=== PATIENT | female | born 1945 | race Caucasian/White ===

== ENCOUNTER 2024-03-15 18:13 | Emergency (ER) | payer MEDICARE, BC ==
[2024-03-15 19:22] LABS: BASOPHILS ABSOLUTE AUTO 0.1 K/mm3 (0.0-0.2); BASOPHILS PERCENT AUTO 0.5 % (0.0-1.0); EOSINOPHILS PERCENT AUTO 0.3 % (0.0-6.0); HEMOGLOBIN 10.2 gm/dl (12.0-16.0); IMMATURE GRAN ABSOLUTE AUTO 0.03 K/mm3 (0.00-0.05); IMMATURE GRAN PERCENT AUTO 0.3 % (0.0-0.4); LYMPHOCYTES ABSOLUTE AUTO 1.8 K/mm3 (1.0-4.8); MEAN CORPUSCULAR HEMOGLOBIN 28.6 pg (28.0-32.0); MEAN CORPUSCULAR HGB CONC 32.9 g/dl (32.0-36.0); MEAN CORPUSCULAR VOLUME 86.8 fl (83.0-99.0); MONOCYTES ABSOLUTE AUTO 0.8 K/mm3 (0.0-0.8); MONOCYTES PERCENT AUTO 7.2 % (0.0-8.0); NEUTROPHILS ABSOLUTE AUTO 8.3 K/mm3 (1.8-7.7); NEUTROPHILS PERCENT AUTO 75.7 % (41.0-71.0); PLATELET COUNT,PLT 389 K/mm3 (150-400); RED BLOOD CELL COUNT 3.57 M/mm3 (4.10-5.30); WHITE BLOOD CELL COUNT,WBC 10.95 K/mm3 (3.9-11.3)
[2024-03-15] MEDS: Sodium Chloride 0.9% 1,000 ML IV STA ×2 (19:36→21:00)
[2024-03-15 19:43] LABS: ALBUMIN 3.4 g/dl (3.4-5.0); ANION GAP 14.8 (5-15); BILIRUBIN TOTAL 0.3 mg/dL (0.2-1.0); C-REACTIVE PROTEIN 0.34 mg/dL (<0.30); CALCIUM 8.4 mg/dL (8.5-10.1); EST CRCL DRUG DOSING (CG) 36.11 mL/min; POTASSIUM,K 3.8 mEq/L (3.5-5.1); PROTEIN TOTAL,TP 6.8 g/dl (6.4-8.2)
[2024-03-15 19:45] LABS: MAGNESIUM 2.1 mg/dL (1.8-2.4)
[2024-03-15] MEDS: Sodium Chloride 0.9% 10 ML Syringe FLUSH PRN (19:50)
[2024-03-15] MEDS: Pantoprazole 40 MG Vial IVPUSH ONE (20:04)
[2024-03-15] MEDS: Pantoprazole 80 MG in Sodium Chloride 0.9% 100 ML IV SCH (21:07)
[2024-03-15 21:56] VITALS: BP 130/64; PULSE 92
== END 2024-03-15 21:25 ==
LOC: JD.ED 18:13
DX: K92.2 Gastrointestinal hemorrhage, unspecified (principal); R55 Syncope and collapse; I10 Essential (primary) hypertension; Z88.8 Allergy status to other drugs, medicaments and biological substances; Z88.6 Allergy status to analgesic agent; Z88.2 Allergy status to sulfonamides; Z79.899 Other long term (current) drug therapy
CPT/HCPCS: 36415; 70450; 80053; 83735; 84484; 85025; 86140; 86850; 86900; 86901; 93005; 96361; 96365; 96376; 99285; C9113; J3490; J7030

== ENCOUNTER 2024-06-10 13:50 | Emergency (ER) | payer MEDICARE, BC ==
[2024-06-10 14:54] LABS: BASOPHILS ABSOLUTE AUTO 0.1 K/mm3 (0.0-0.2); BASOPHILS PERCENT AUTO 0.6 % (0.0-1.0); EOSINOPHILS ABSOLUTE AUTO 0.1 K/mm3 (0.0-0.4); EOSINOPHILS PERCENT AUTO 0.9 % (0.0-6.0); HEMATOCRIT 35.5 % (37.0-47.0); HEMOGLOBIN 11.5 gm/dl (12.0-16.0); IMMATURE GRAN ABSOLUTE AUTO 0.02 K/mm3 (0.00-0.05); IMMATURE GRAN PERCENT AUTO 0.2 % (0.0-0.4); LYMPHOCYTES ABSOLUTE AUTO 1.4 K/mm3 (1.0-4.8); LYMPHOCYTES PERCENT AUTO 15.7 % (24.0-44.0); MEAN CORPUSCULAR HEMOGLOBIN 26.4 pg (28.0-32.0); MEAN CORPUSCULAR HGB CONC 32.4 g/dl (32.0-36.0); MEAN PLATELET VOLUME 9.8 fl (9.4-12.3); MONOCYTES PERCENT AUTO 11.8 % (0.0-8.0); NEUTROPHILS ABSOLUTE AUTO 6.2 K/mm3 (1.8-7.7); NEUTROPHILS PERCENT AUTO 70.8 % (41.0-71.0); RED BLOOD CELL COUNT 4.36 M/mm3 (4.10-5.30); WHITE BLOOD CELL COUNT,WBC 8.71 K/mm3 (3.9-11.3)
[2024-06-10 14:59] LABS: MEAN CORPUSCULAR VOLUME 81.4 fl (83.0-99.0); PLATELET COUNT,PLT 278 K/mm3 (150-400)
[2024-06-10 15:25] LABS: A/G RATIO 1.1 (1-2); ALBUMIN 3.6 g/dl (3.4-5.0); ANION GAP 18.1 (5-15); BILIRUBIN TOTAL 0.5 mg/dL (0.2-1.0); BUN/CREATININE RATIO 15.8 (14-18); C-REACTIVE PROTEIN 9.77 mg/dL (<0.30); CALCIUM 9.1 mg/dL (8.5-10.1); CREATININE 1.2 mg/dL (0.55-1.02); EST CRCL DRUG DOSING (CG) 30.1 mL/min; POTASSIUM,K 4.1 mEq/L (3.5-5.1); PROTEIN TOTAL,TP 6.9 g/dl (6.4-8.2)
[2024-06-10] MEDS: Iopamidol 755 Mg/ML 100 ML Bottle IVPUSH ONE (16:22)
[2024-06-10] MEDS: Sodium Chloride 0.9% 100 ML IV SCH (16:22)
[2024-06-10] MEDS: Sodium Chloride 0.9% 1,000 ML IV STA (16:42)
[2024-06-10] MEDS: Sodium Chloride 0.9% 10 ML Syringe FLUSH PRN (16:42)
[2024-06-10 16:43] LABS: CORONAVIRUS COVID-19 NAA NEGATIVE (NEGATIVE); INFLUENZA A NAA NEGATIVE (NEGATIVE); RESPIRATORY SYNCYTIAL VIR NAA NEGATIVE (NEGATIVE)
[2024-06-10 16:47] LABS: APPEARANCE,URINE CLEAR (Clear); BILIRUBIN,URINE NEGATIVE (Negative); COLOR,URINE YELLOW (Yellow); GLUCOSE,URINE NEGATIVE (Negative); KETONES,URINE NEGATIVE (Negative); LEUKOCYTE ESTERASE,URINE NEGATIVE (Negative); NITRITE,URINE NEGATIVE (Negative); OCCULT BLOOD,URINE NEGATIVE (Negative); PH,URINE 6.5 (5.0-8.0); PROTEIN,URINE NEGATIVE (Negative); UROBILINOGEN,URINE 0.2 (0.2-1.0)
[2024-06-10] MEDS: predniSONE 20 MG Tab PO ONE (17:34)
[2024-06-10 17:45] VITALS: BP 153/63; PULSE 78
[2024-06-10 17:50] LABS: TSH 1.904 uIU/mL (0.358-3.74)
== END 2024-06-10 17:43 | disposition home or self-care (01) ==
LOC: JD.ED 13:50
DX: M25.512 Pain in left shoulder (principal); R53.1 Weakness; I10 Essential (primary) hypertension; Z79.899 Other long term (current) drug therapy; Z88.2 Allergy status to sulfonamides; Z88.8 Allergy status to other drugs, medicaments and biological substances
CPT/HCPCS: 0241U; 36415; 70450; 70496; 70498; 73030; 80053; 81003; 84443; 84484; 85025; 86140; 93005; 96360; 99285; C1758; J3490; J7030; J7512; Q9967; 93010; 99284

== ENCOUNTER 2024-06-18 15:05 | Inpatient (IN) | payer MEDICARE, BC ==
[2024-06-18 15:59] LABS: BASOPHILS ABSOLUTE AUTO 0.1 K/mm3 (0.0-0.2); BASOPHILS PERCENT AUTO 0.6 % (0.0-1.0); EOSINOPHILS PERCENT AUTO 0.3 % (0.0-6.0); HEMATOCRIT 41.1 % (37.0-47.0); HEMOGLOBIN 13.2 gm/dl (12.0-16.0); IMMATURE GRAN ABSOLUTE AUTO 0.04 K/mm3 (0.00-0.05); IMMATURE GRAN PERCENT AUTO 0.4 % (0.0-0.4); LYMPHOCYTES ABSOLUTE AUTO 2.1 K/mm3 (1.0-4.8); LYMPHOCYTES PERCENT AUTO 21.7 % (24.0-44.0); MEAN CORPUSCULAR HEMOGLOBIN 26.3 pg (28.0-32.0); MEAN CORPUSCULAR HGB CONC 32.1 g/dl (32.0-36.0); MEAN PLATELET VOLUME 9.6 fl (9.4-12.3); MONOCYTES ABSOLUTE AUTO 0.9 K/mm3 (0.0-0.8); NEUTROPHILS ABSOLUTE AUTO 6.3 K/mm3 (1.8-7.7); PLATELET COUNT,PLT 372 K/mm3 (150-400); RED BLOOD CELL COUNT 5.01 M/mm3 (4.10-5.30); WHITE BLOOD CELL COUNT,WBC 9.44 K/mm3 (3.9-11.3)
[2024-06-18 16:30] LABS: LACTIC ACID 1.1 mmol/L (0.4-2.0)
[2024-06-18] MEDS: Dextrose 5%-0.9% NaCl 1,000 ML IV SCH (16:31)
[2024-06-18] MEDS: HYDROmorphone 0.5 MG/0.5 ML Syringe IVPUSH ONE ×2 (16:31→17:55)
[2024-06-18 16:41] LABS: ALANINE AMINOTRANSFERASE,ALT 22 U/L (14-59); ALBUMIN 3.6 g/dl (3.4-5.0); ALKALINE PHOSPHATASE 120 U/L (46-116); ANION GAP 13.8 (5-15); ASPARTATE AMNIOTRANSFERASE,AST 13 U/L (15-37); BILIRUBIN TOTAL 0.3 mg/dL (0.2-1.0); BLOOD UREA NITROGEN,BUN 21 mg/dL (7-18); BUN/CREATININE RATIO 17.5 (14-18); C-REACTIVE PROTEIN 0.81 mg/dL (<0.30); CALCIUM 9.1 mg/dL (8.5-10.1); CARBON DIOXIDE,CO2 26 mEq/L (21-32); CHLORIDE,CL 102 mEq/L (98-107); CREATININE 1.2 mg/dL (0.55-1.02); ESTIMATED GFR 47 mL/min (>60); GLUCOSE RANDOM 112 mg/dL (70-99); LIPASE 45 U/L (16-77); MAGNESIUM 2.1 mg/dL (1.8-2.4); POTASSIUM,K 3.8 mEq/L (3.5-5.1); PROTEIN TOTAL,TP 7.2 g/dl (6.4-8.2); SODIUM,NA 138 mEq/L (136-145); TSH 3.548 uIU/mL (0.358-3.74)
[2024-06-18 16:42] LABS: TROPONIN I HIGH SENSITIVITY < 4 pg/mL (<=51)
[2024-06-18 17:52] LABS: APPEARANCE,URINE CLEAR (Clear); BILIRUBIN,URINE NEGATIVE (Negative); COLOR,URINE LIGHT YELLOW (Yellow); GLUCOSE,URINE NEGATIVE (Negative); KETONES,URINE NEGATIVE (Negative); LEUKOCYTE ESTERASE,URINE NEGATIVE (Negative); NITRITE,URINE NEGATIVE (Negative); OCCULT BLOOD,URINE NEGATIVE (Negative); PROTEIN,URINE NEGATIVE (Negative); UROBILINOGEN,URINE 0.2 (0.2-1.0)
[2024-06-18] MEDS: Metoclopramide 10 MG/2 ML SDV IVPUSH ONE (17:54)
[2024-06-18] MEDS ORDERED: Sennosides/Docusate Sodium 50-8.6 MG Tab PO PRN (19:50)
[2024-06-18] MEDS ORDERED: Acetaminophen/HYDROcodone 325-5 MG Tab PO PRN (19:50)
[2024-06-18] MEDS ORDERED: Morphine 2 MG/ML SYRINGE IVPUSH PRN (19:50)
[2024-06-18] MEDS ORDERED: Acetaminophen 325 MG Tab PO PRN (19:50)
[2024-06-18] MEDS ORDERED: Ondansetron 4 MG/2 ML SDV IV PRN (19:50)
[2024-06-18] MEDS ORDERED: hydrALAZINE 20 MG/ML SDV IVPUSH PRN (19:54)
[2024-06-18] MEDS ORDERED: Labetalol 100 MG/20 ML MDV IVPUSH PRN (19:56)
[2024-06-18] MEDS: Orphenadrine 100 MG Tab.ER PO SCH (21:38)
[2024-06-18 22:28] LABS: CORONAVIRUS COVID-19 NAA NEGATIVE (NEGATIVE); INFLUENZA A NAA NEGATIVE (NEGATIVE); RESPIRATORY SYNCYTIAL VIR NAA NEGATIVE (NEGATIVE)
[2024-06-19 05:34] LABS: HEMATOCRIT 38.8 % (37.0-47.0); HEMOGLOBIN 12.5 gm/dl (12.0-16.0); MEAN CORPUSCULAR HEMOGLOBIN 26.7 pg (28.0-32.0); MEAN CORPUSCULAR HGB CONC 32.2 g/dl (32.0-36.0); MEAN CORPUSCULAR VOLUME 82.9 fl (83.0-99.0); MEAN PLATELET VOLUME 10.2 fl (9.4-12.3); PLATELET COUNT,PLT 366 K/mm3 (150-400); RED BLOOD CELL COUNT 4.68 M/mm3 (4.10-5.30); WHITE BLOOD CELL COUNT,WBC 9.25 K/mm3 (3.9-11.3)
[2024-06-19 05:57] LABS: A/G RATIO 0.9 (1-2); ALBUMIN 3.1 g/dl (3.4-5.0); ANION GAP 11.7 (5-15); BILIRUBIN TOTAL 0.3 mg/dL (0.2-1.0); BUN/CREATININE RATIO 12.5 (14-18); CALCIUM 8.8 mg/dL (8.5-10.1); CREATININE 1.2 mg/dL (0.55-1.02); EST CRCL DRUG DOSING (CG) 30.1 mL/min; MAGNESIUM 1.9 mg/dL (1.8-2.4); PHOSPHORUS 3.1 mg/dL (2.6-4.7); POTASSIUM,K 3.7 mEq/L (3.5-5.1); PROTEIN TOTAL,TP 6.5 g/dl (6.4-8.2)
[2024-06-19] MEDS: Enoxaparin 40 MG/0.4 ML Syringe SUBCUT SCH (09:34)
[2024-06-19] MEDS: Potassium Chloride 20 MEQ Tab.ER PO ONE (11:35)
[2024-06-19] MEDS: Losartan 25 MG Tab PO SCH (16:38)
[2024-06-19] MEDS: Ezetimibe 10 MG Tab PO SCH (16:38)
[2024-06-19] MEDS: Cholecalciferol (Vitamin D3) 25 MCG Tab PO SCH (16:38)
[2024-06-19] MEDS: Famotidine 20 MG Tab PO SCH (19:34)
[2024-06-20] MEDS: Melatonin 3 MG Tab PO PRN (01:02)
[2024-06-20 05:11] LABS: ANION GAP 13.2 (5-15); BUN/CREATININE RATIO 10.9 (14-18); CALCIUM 8.8 mg/dL (8.5-10.1); CREATININE 1.1 mg/dL (0.55-1.02); EST CRCL DRUG DOSING (CG) 32.83 mL/min; POTASSIUM,K 4.2 mEq/L (3.5-5.1)
[2024-06-20] MEDS: Multivitamins with Minerals/Folic Acid/Lutein/Zeaxanth Tab PO SCH (08:25)
[2024-06-20] MEDS: Sodium Chloride 0.9% 500 ML IV ONE ×2 (10:45→13:15)
[2024-06-20 15:40] VITALS: BP 150/59; PULSE 78
== END 2024-06-20 14:55 | disposition home or self-care (01) | DRG 312 ==
LOC: JD.ED 15:05 → JD.MS 19:45
PROVIDERS: ADMIT Student in an Organized Health Care Education/Training Program; ATTEND Family Medicine
DX: I95.1 Orthostatic hypotension (principal); E86.0 Dehydration; I10 Essential (primary) hypertension; R63.4 Abnormal weight loss; T46.5X5A Adverse effect of other antihypertensive drugs, initial encounter; I25.10 Atherosclerotic heart disease of native coronary artery without angina pectoris; E78.00 Pure hypercholesterolemia, unspecified; M19.90 Unspecified osteoarthritis, unspecified site; K21.9 Gastro-esophageal reflux disease without esophagitis; Z68.27 Body mass index [BMI] 27.0-27.9, adult; W26.8XXA Contact with other sharp object(s), not elsewhere classified, initial encounter; G89.29 Other chronic pain; R79.89 Other specified abnormal findings of blood chemistry; K59.09 Other constipation; T21.13XA Burn of first degree of upper back, initial encounter; S09.90XA Unspecified injury of head, initial encounter; M54.6 Pain in thoracic spine; I08.2 Rheumatic disorders of both aortic and tricuspid valves; Z95.5 Presence of coronary angioplasty implant and graft; Z98.1 Arthrodesis status; Z88.8 Allergy status to other drugs, medicaments and biological substances; Z88.2 Allergy status to sulfonamides; Z79.899 Other long term (current) drug therapy; Z87.442 Personal history of urinary calculi; Z90.89 Acquired absence of other organs; Z98.890 Other specified postprocedural states
CPT/HCPCS: 0241U; 36415; 70450; 72128; 80048; 80053; 81003; 82652; 83605; 83690; 83735; 84100; 84443; 84484; 85025; 85027; 86140; 93005; 93306; 94761; 96361; 96374; 96375; 96376; 97110; 97161; 99285; 93010; 99222; 99238; A9270-GY; J1170; J1650; J2765; J7030; J7042